=== PATIENT | female | born 1960 | race Caucasian/White ===

== ENCOUNTER → 2024-10-21 12:44 | Outpatient (REF) | payer OTHER, SELFPAY | LOC: HWWDC 12:44 | DX: Z12.31 Encounter for screening mammogram for malignant neoplasm of breast (principal) | CPT/HCPCS: 77063; 77067 ==

== ENCOUNTER → 2025-01-31 07:59 | Outpatient (REF) | payer OTHER, SELFPAY ==
[2025-01-31 08:56] LABS: % Basophils 0.3 % (0-2); % Eosinophils 2.8 % (0-6); % Immature Granulocytes 0.5 % (0-0.5); % Lymphocytes 28.9 % (20.5-51.1); % Monocytes 5.8 % (1.7-9.3); % Neutrophils 61.7 % (42.2-75.2); Absolute Eosinophils 0.2 10^3/uL (0-0.7); Absolute Lymphocytes 1.8 10^3/uL (1.2-3.4); Absolute Monocytes 0.4 10^3/uL (0.1-0.6); Absolute Neutrophils 3.7 10^3/uL (1.4-6.5); Hematocrit 40.4 % (37.0-47.0); Hemoglobin 12.4 g/dL (12.0-16.0); Mean Corp Hgb Conc. 30.7 g/dL (33.0-37.0); Mean Corpuscular Hgb 23.3 pg (27.0-31.0); Mean Corpuscular Volume 75.8 fL (81.0-99.0); Mean Platelet Volume 11.4 fL (7.4-10.4); Nucleated Red Blood Cells % 0 %; Platelet Count 174 10^3/uL (130-400); Red Blood Cell Count 5.33 10^6/uL (4.20-5.40); Red Cell Dist. Width 14.6 % (11.5-14.5); White Blood Cell Count 6.1 10^3/uL (4.8-10.8)
[2025-01-31 09:32] LABS: ALT (SGPT) 17 U/L (0-35); AST (SGOT) 23 U/L (14-36); Albumin 4.2 g/dl (3.5-5.0); Alkaline Phosphatase 67 U/L (38-126); Blood Urea Nitrogen 25 mg/dl (7-17); Calcium 9.5 mg/dl (8.4-10.2); Carbon Dioxide 31 mmol/L (22-30); Chloride 106 mmol/L (98-107); Glucose 102 mg/dl (70-99); HDL Cholesterol 71 mg/dl; LDL Cholesterol, Calculated 126 mg/dl; Potassium 3.7 mmol/L (3.5-5.1); Sodium 144 mmol/L (135-145); Total Bilirubin 0.6 mg/dl (0.2-1.3); Total Cholesterol 216 mg/dl (50-199); Total Protein 7.1 g/dl (6.3-8.2); Triglyceride 95 mg/dl (10-149); Very Low Density Lipoprotein 19 mg/dl (0-30); eGFR > 60.00
[2025-01-31 10:05] LABS: TSH Reflex To Free T4 7.12 uIU/ml (0.47-4.68)
[2025-01-31 10:33] LABS: Free T4 1.02 ng/dl (0.78-2.19)
[2025-02-01 12:06] LABS: H. pylori Breath Test Positive (Negative)
[2025-02-01 15:02] LABS: Rubeola (Measles) IgG Positive
[2025-02-02 09:20] LABS: Iron 117 ug/dl (37-170)
[2025-02-02 09:30] LABS: Percent Saturation 34 % (20-50); Total Iron Binding Capacity 344 ug/dl (265-497)
[2025-02-02 09:58] LABS: Ferritin 32.6 ng/ml (11.1-264.0)
== END ==
LOC: REG 07:59
DX: Z00.01 Encounter for general adult medical examination with abnormal findings (principal); Z01.84 Encounter for antibody response examination; A04.8 Other specified bacterial intestinal infections
CPT/HCPCS: 36415; 80053; 80061; 82728; 83013; 83540; 83550; 84439; 84443; 85025; 86765

== ENCOUNTER → 2025-05-10 07:01 | Outpatient (REF) | payer OTHER, SELFPAY | LOC: REG 07:01 | DX: A04.8 Other specified bacterial intestinal infections (principal) | CPT/HCPCS: 36415; 83013 ==

== ENCOUNTER → 2025-05-26 06:46 | Outpatient (REF) | payer OTHER, SELFPAY | LOC: REG 06:46 | PROVIDERS: ATTENDING PHYSICIAN Dermatology; FAMILY PHYSICIAN Internal Medicine | DX: D89.89 Other specified disorders involving the immune mechanism, not elsewhere classified (principal) | CPT/HCPCS: 36415; 84439; 84443 ==

== ENCOUNTER → 2025-06-02 09:00 | Outpatient (REF) | payer OTHER, SELFPAY | LOC: CPAP 09:00 | PROVIDERS: ATTENDING PHYSICIAN Obstetrics & Gynecology | DX: Z12.4 Encounter for screening for malignant neoplasm of cervix (principal) | CPT/HCPCS: 88175 ==

== ENCOUNTER → 2025-11-03 10:12 | Outpatient (REF) | payer OTHER, SELFPAY | LOC: WDC 10:12 | PROVIDERS: ATTENDING PHYSICIAN Internal Medicine | DX: Z12.31 Encounter for screening mammogram for malignant neoplasm of breast (principal) | CPT/HCPCS: 77063; 77067 ==